=== PATIENT | female | born 1955 | race Caucasian/White ===

== ENCOUNTER → 2018-07-27 | Outpatient (CLI) | payer MEDICARE, OTHER ==
[~2018-07-27] MED LIST: (None)15 G1 TOP; ACET500 PO; ALBU90OI61; ALLEGRA ALLERG180 MG PO; AMOCLA875; AMOCLA875 PO; Allergy Medicin25 MG PO; Amaryl4 MG PO; Amox Tr-K Clv1 EAC2 PO; BYDUREON2 MG SQ; Bactrim Ds Tab1 EACH PO; CEFAZOLIN2 GM/50 ML IV; CHOL10002 PO; CLOT10 SS; Cleocin HCl300 MG PO; FERR325; FERR325 PO; FEXPSEER PO; Ferrous Sulfat325 M2 PO; GLIM4 PO; GLYB1.5 PO; HOMATROPAIRE PO; HYDACE5325 PO; HYDCHL12.5 PO; HYDCHL50 PO; HYDPAM50 PO; HYDR1TAB94; HYDR1TAB94 PO; Hydrocodone-Ap1 EA23 PO; IBUP800; IBUPROFEN200 MG PO; INSDET100 SC; INSDET100 SUBQ; INSU100I6 SC; INSUASPI SC; INSULIN DETEMIR; IRON150C PO; LEVAQUIN-D750 MG/150; LEVEMIR FL100 UNIT/1 SC; LEVFLO500; LEVO750 PO; LEVSOD100 PO; LEVSOD50 DT; LEVSOD50 PO; LIRA0.6P SC; LORA10 PO; LOSA25; LOSA50 PO; LOSHYD100 PO; Levothyroxine200 MCG PO; MAGOXI400 PO; METF500 PO; Novolog Fl100 UNIT/1 SC; PRED1SU BOTHEYES; PROC5 PO; SACC250C PO; SPIR25; SPIR50 PO; Synthroid125 MCG PO; TOUJEO SOL300 UNIT/1 SC; TRIA80TC TOP; VANCOMYCIN1.5 GM/252 IV; VITAMIN D PO; XARELTO10 MG; XARELTO15 MG PO; XARELTO20 MG PO
[2018-07-27 14:11] LABS: Free Thyroxine 2.2 ng/dL (0.70-1.60)
[2018-07-27 14:14] LABS: Thyroid Stimulating Hormone 0.061 uIU/mL (0.360-4.800)
== END | disposition home or self-care (01) ==
LOC: LAB 11:46 → LAB SHORT 11:46
PROVIDERS: Hospitalist
DX: E03.9 Hypothyroidism, unspecified (principal)
CPT/HCPCS: 84439; 84443

== ENCOUNTER 2019-06-14 01:05 | Emergency (ER) | payer MEDICARE, OTHER ==
[~2019-06-14] VITALS: Ht 172.7 cm; Wt 113.4 kg
[~2019-06-14 01:05] MED LIST changes: +HUMULIN 70100 UNIT/2 SC; +HYDCHL25 PO; +LOSARTAN POTAS100 MG PO; +Metformin HCl1000 MG PO; +SYNTHROID0.2 MG PO; -Synthroid125 MCG PO
[2019-06-14 01:30] LABS: Calcium, Ionized (POC) 1.24 mmol/L (1.10-1.46); Chloride (POC) 99 mmol/L (98-108); Creatinine (POC) 1.5 mg/dL (0.6-1.0); Glucose (ISTAT POC) 564 mg/dL (70-99); Hemoglobin (POC) 15.6 g/dL (12.0-16.0); Potassium (POC) 4.2 mmol/L (3.5-5.5); Sodium (POC) 134 mmol/L (135-148); Total CO2 (POC) 17 mmol/L (21-32)
== END 2019-06-14 04:34 ==
LOC: ER 01:05
PROVIDERS: Emergency Medicine
DX: I46.9 Cardiac arrest, cause unspecified (principal); E11.22 Type 2 diabetes mellitus with diabetic chronic kidney disease; E11.40 Type 2 diabetes mellitus with diabetic neuropathy, unspecified; I12.9 Hypertensive chronic kidney disease with stage 1 through stage 4 chronic kidney disease, or unspecified chronic kidney disease; N18.3 Chronic kidney disease, stage 3 (moderate); Z87.01 Personal history of pneumonia (recurrent)
CPT/HCPCS: 31500; 36415; 80047; 85014; 96374; 96375; 99285-25